=== PATIENT | female | born 1990 | race Caucasian/White ===

== ENCOUNTER 2017-06-27 13:25 | Emergency (ER) | payer OTHER ==
[~2017-06-27] VITALS: Ht 157.5 cm; Wt 57.0 kg
[2017-06-27 13:35] VITALS: Ht 157.5 cm; Wt 57.0 kg
[2017-06-27] MEDS ORDERED: BUPR100T8 PO (13:39)
[2017-06-27] MEDS ORDERED: SERT50TA PO (13:39)
[2017-06-27] MEDS ORDERED: ACETAMINOPHEN 500 MG TAB PO STA (13:53)
[2017-06-27 13:58] VITALS: O2SAT 96
[2017-06-27] MEDS ORDERED: ONDANSETRON 4MG OD TAB PO ONE (14:00)
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
[2017-06-27 16:15] VITALS: BP 106/60; PULSE 73; O2SAT 96
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
== END 2017-06-27 16:15 | disposition home or self-care (01) ==
LOC: EDBD 13:25 → C.EDB 13:28
DX: S09.90XA Unspecified injury of head, initial encounter (principal); S06.0X0A Concussion without loss of consciousness, initial encounter; S00.83XA Contusion of other part of head, initial encounter; V19.9XXA Pedal cyclist (driver) (passenger) injured in unspecified traffic accident, initial encounter; S60.212A Contusion of left wrist, initial encounter